=== PATIENT | female | born 1955 | race Caucasian/White ===

== ENCOUNTER → 2016-12-19 | Outpatient (CLI) | payer OTHER ==
[~2016-12-19] MED LIST: BLACK COHOSH40 MG PO; MAGNESIUM27 MG PO; WELLBUTRIN XL150 MG PO; ZYRTEC10 M1 PO
== END ==
LOC: RAD 15:45
DX: M47.816 Spondylosis without myelopathy or radiculopathy, lumbar region (principal); M54.5 Low back pain

== ENCOUNTER → 2017-01-13 | Outpatient (CLI) | payer OTHER | LOC: RAD 12:13 | DX: M47.896 Other spondylosis, lumbar region (principal); M51.26 Other intervertebral disc displacement, lumbar region; M71.351 Other bursal cyst, right hip ==

== ENCOUNTER → 2019-04-23 | Outpatient (CLI) | payer OTHER | LOC: CAT 16:34 | DX: Z13.6 Encounter for screening for cardiovascular disorders (principal); E78.00 Pure hypercholesterolemia, unspecified; I25.10 Atherosclerotic heart disease of native coronary artery without angina pectoris ==

== ENCOUNTER 2019-12-31 11:35 | Emergency (ER) | payer OTHER ==
[~2019-12-31] VITALS: Ht 162.6 cm; Wt 59.4 kg
[2019-12-31] MEDS ORDERED: KEFLEX500 M1 PO (12:50)
[2019-12-31 13:01] VITALS: BP 124/67
--- NOTE | 2019-12-31 14:09 | EKG ---
[facility] [place] [address] ELECTROCARDIOGRAM REPORT Name: GM FLORES Room #: [facility].#: [id number] Admission: 12/31/19 Attend Phys: Discharge: Date of : 57 Report #: [id number] THIS REPORT FOR: cc: Shakir Piper Steven F. DO Couchonnal, Luis F. MD ~ THIS REPORT FOR: //name// [facility] ED Test Date: 2019-12-31 Test Time: 12:05:54 Pat Name: GM FLORES Department: Room: Gender: Tarper: dinora : 1955 Requested By: Marian Petit Order Number: [id number] MD: Jonathan No Measurements Intervals [place] Rate: 63 P: 80 WI: 164 QRS: 17 QRSD: 107 T: 57 QT: 409 QTc: 419 Interpretive Statements Sinus rhythm RSR' in V1 or V2, right VCD or RVH Compared to ECG 06/06/2016 16:47:10 No significant changes Electronically Signed On 12-31-2019 14:07:51 CDT by Jonathan No [email or web address] <ELECTRONICALLY SIGNED> By: Jonathan No MD 12/31/19 1407 1205 1205 Jonathan No MD /EPI
== END 2019-12-31 13:00 | disposition home or self-care (01) ==
LOC: ER 11:35
DX: R06.00 Dyspnea, unspecified (principal); R06.02 Shortness of breath; R05 Cough; R53.83 Other fatigue; J45.909 Unspecified asthma, uncomplicated; Z87.442 Personal history of urinary calculi; Z79.899 Other long term (current) drug therapy; Z03.818 Encounter for observation for suspected exposure to other biological agents ruled out

== ENCOUNTER → 2020-03-24 | Outpatient (CLI) | payer BC ==
[~2020-03-24] MED LIST changes: +KEFLEX500 M1 PO
== END ==
LOC: LAB 09:18
PROVIDERS: ATTEND Neuromusculoskeletal Medicine & OMM
DX: R06.02 Shortness of breath (principal); R52 Pain, unspecified; J02.9 Acute pharyngitis, unspecified; Z20.828 Contact with and (suspected) exposure to other viral communicable diseases